=== PATIENT | male | born 1985 | race Caucasian/White ===

== ENCOUNTER 2017-02-24 00:58 | Emergency (ER) | payer BC, OTHER ==
[~2017-02-24] VITALS: Ht 180.3 cm; Wt 144.0 kg
[2017-02-24 01:05] VITALS: TEMP 36.9; Ht 180.3 cm; Wt 144.0 kg
[2017-02-24 04:22] VITALS: BP 133/76; PULSE 93; O2SAT 96
--- NOTE | 2017-02-24 06:49 | DIAGNOSTIC IMAGING REPORT ---
RIGHT TIBIA/FIBULA 2 VIEWS ROUTINE HISTORY: 31 years-old Male acute right lower extremity pain status post fall. COMPARISON: Right tibia and fibula radiographs 01/26/2016 TECHNIQUE: Frontal and lateral views of the right tibia and fibula. FINDINGS: There is moderate spurring of the Achilles insertion site about the calcaneus. There is mild spurring of the distal fibula as well. Bone mineralization is within normal limits. There is no acute fracture or dislocation identified. There is mild distal pretibial soft tissue swelling without radiopaque foreign body. IMPRESSION: 1. Mild pretibial soft tissue swelling without fracture. 2. Moderate spurring of the Achilles insertion site about the calcaneus. The above report was generated using voice recognition software. It may contain grammatical, syntax or spelling errors. Electronically signed by: Narendra Escoto M.D. 02/24/2017 6:48 AM Dictated Date/Time: 02/24/2017 6:46 AM
--- NOTE | 2017-02-24 07:04 | DIAGNOSTIC IMAGING REPORT ---
BILATERAL LOWER EXTREMITY VENOUS DOPPLER HISTORY: Acute right lower extremity pain. COMPARISON STUDY: Duplex ultrasound 01/26/2016. FINDINGS: There is normal compressibility, flow, and augmentation within the right lower extremity deep venous system. Incidental note is made of several right inguinal lymph nodes with increased lobulated echogenicity peripherally, largest of which measures 1.1 x 0.8 x 1.1 cm. These are nonspecific. IMPRESSION: 1. No DVT within the right lower extremity. 2. Incidental note is made of several mildly prominent right inguinal lymph nodes with increased lobulated echogenicity peripherally, nonspecific. Correlate with clinical exam. Electronically signed by: Narendra Escoto M.D. 02/24/2017 7:03 AM Dictated Date/Time: 02/24/2017 6:59 AM
--- NOTE | 2017-02-25 11:50 | EMERGENCY ROOM VISIT NOTE ---
History First contact with patient: 01:22 Chief Complaint: LEG PAIN,LEG INJURY Stated Complaint: PAIN FROM HIP TO TOE,TIGHTNESS IN CALF History of Present Illness The patient is a 31 year old male who presents to the Emergency Room with complaints of right lower leg pain worsening over the past several weeks. The patient states that he followed up with his primary care physician, and was told to take [id number] anti-inflammatories. He states that he primarily now has pain in the back of his knee just below the kneecap. He is able to ambulate and does not recall a distinct injury or trauma. He rates his discomfort a 4/10, dull, with some radiation down into his calf and toes. He does not have back pain or difficulty using the bathroom. Review of Systems More than 10 systems were reviewed and otherwise negative with the exception of history of present illness. Past Medical/Surgical History No chronic medical disease Family History No pertinent family history Social History Smoking Status: Never Smoker Occupation Status: employed Current/Historical Medications No Active Prescriptions or Reported Meds Physical Exam Vital Signs Date Time Temp Pulse Resp B/P (MAP) Pulse Ox O2 Delivery O2 Flow Rate FiO2 02/24/17 04:22 93 18 133/76 96 02/24/17 03:23 89 20 150/71 02/24/17 01:05 36.9 94 16 148/89 96 Room Air Pain Rating (0-10): 2.0 Physical Exam VITALS: Vitals are noted on the nurse's note and reviewed by myself. Vital signs stable. GENERAL: Well-developed, well-nourished, white male, who is in no acute distress and resting comfortably. Patient is cooperative with the examination. HEART: Regular rate and rhythm without murmurs gallops or rubs. LUNGS: Clear to auscultation bilaterally without wheezes, rales or rhonchi. No retractions or accessory muscle use. ABDOMEN: Positive normal bowel sounds x 4. Soft, nontender, without masses or organomegaly. No guarding or rebound tenderness. MUSCULOSKELETAL: No muscle atrophy, erythema, or edema noted. Full range of motion without joint tenderness in all extremities. No tenderness to palpation. Normal gait. Strength 5/5 throughout. No tenderness of the low back. No saddle paresthesias. NEURO: Patient was alert and oriented to person place and time. CN II through XII grossly intact. Deep tendon reflexes 2+ throughout. Medical Decision & Procedures ER Provider Diagnostic Interpretation: RIGHT TIBIA/FIBULA 2 VIEWS ROUTINE HISTORY: 31 years-old Male acute right lower extremity pain status post fall. COMPARISON: Right tibia and fibula radiographs 01/26/2016 TECHNIQUE: Frontal and lateral views of the right tibia and fibula. FINDINGS: There is moderate spurring of the Achilles insertion site about the calcaneus. There is mild spurring of the distal fibula as well. Bone mineralization is within normal limits. There is no acute fracture or dislocation identified. There is mild distal pretibial soft tissue swelling without radiopaque foreign body. IMPRESSION: 1. Mild pretibial soft tissue swelling without fracture. 2. Moderate spurring of the Achilles insertion site about the calcaneus. The above report was generated using voice recognition software. It may contain grammatical, syntax or spelling errors. BILATERAL LOWER EXTREMITY VENOUS DOPPLER HISTORY: Acute right lower extremity pain. COMPARISON STUDY: Duplex ultrasound 01/26/2016. FINDINGS: There is normal compressibility, flow, and augmentation within the right lower extremity deep venous system. Incidental note is made of several right inguinal lymph nodes with increased lobulated echogenicity peripherally, largest of which measures 1.1 x 0.8 x 1.1 cm. These are nonspecific. IMPRESSION: 1. No DVT within the right lower extremity. 2. Incidental note is made of several mildly prominent right inguinal lymph nodes with increased lobulated echogenicity peripherally, nonspecific. Correlate with clinical exam. ED Course Physical exam and history were performed. Nursing notes, EMR, and Medication List were personally reviewed. Patient appears to have reports of right lower leg pain for the past several weeks. He does not have significant findings on examination. X-ray of the tib- fib was performed at without acute findings. Ultrasound was negative for DVT. Overall the patient's symptoms are likely musculoskeletal. He does not have signs of infection or other obvious etiologies of his symptoms. The patient was asked to follow with his PCP for further care and management. He is otherwise invited back to the ER anytime and was pleased with plan of care. The chart was completed utilizing [employer] Recognition Software. Grammatical errors, random word insertions, pronoun errors, and incomplete sentences are an occasional consequence of this system due to software limitations, ambient noise, and hardware issues. Any formal questions or concerns about the content, text, or information contained within the body of this dictation should be directly addressed to the provider for clarification. . Medical Decision Differential diagnosis: Etiologies such as DVT, musculoskeletal, infection, joint effusion, trauma, lymphedema, idiopathic, CHF, as well as others were entertained.. Impression Primary Impression: Pain in right leg Departure Information Dispostion Home / Self-Care Condition GOOD Prescriptions No Active Prescriptions or Reported Meds Forms HOME CARE DOCUMENTATION FORM, IMPORTANT VISIT INFORMATION Patient Instructions My [facility] Additional Instructions You were seen and evaluated today on an emergency basis only. This is not a substitute for, or an effort to provide, complete comprehensive medical care. It is not possible to recognize and treat all injuries or illnesses in a single emergency department visit. For this reason it is recommended that you followup with your primary care physician with any ongoing or persistent symptoms. For baseline pain relief you may alternate ibuprofen and acetaminophen every 4 hours for pain control. Take 600 mg ibuprofen (Advil) and then 4 hours later take 1000 mg acetaminophen (Tylenol). Do not take more than 3000 mg acetaminophen in a single day. You are welcome to return to the emergency department anytime with new, worsening, or concerning symptoms.
== END 2017-02-24 04:22 | disposition home or self-care (01) ==
LOC: C.EDB 01:00 → C.EDA 04:22
DX: M79.661 Pain in right lower leg (principal)

== ENCOUNTER 2018-03-03 21:35 | Emergency (ER) | payer BC, OTHER ==
[~2018-03-03] VITALS: Ht 431.8 cm; Wt 146.5 kg
[2018-03-03 21:38] VITALS: TEMP 37.2; Ht 431.8 cm; Wt 146.5 kg
[2018-03-03] MEDS ORDERED: KETOROLAC TROMETHAMINE 30 MG/ML VIAL IV STA (22:00)
[2018-03-03] MEDS ORDERED: SODIUM CHLORIDE 0.9% 1000ML 1,000 ML IV STA ×2 (22:00→23:46)
--- NOTE | 2018-03-03 22:18 | DIAGNOSTIC IMAGING REPORT ---
CHEST ONE VIEW PORTABLE CLINICAL HISTORY: Epigastric and back pain COMPARISON STUDY: January 2012 FINDINGS: The heart is borderline enlarged. There is no failure. There is no focal pulmonary consolidation. There are no pleural effusions.[ IMPRESSION: No active disease in the chest. Electronically signed by: Pedro Iyer M.D. 03/03/2018 10:17 PM Dictated Date/Time: 03/03/2018 10:17 PM
[2018-03-03 22:27] LABS: BASO % 0.3 %; BASO ABS # 0.04 K/uL (0-0.2); EOS % 0.1 %; EOS ABS # 0.01 K/uL (0-0.5); HEMATOCRIT 41.8 % (42-52); HEMOGLOBIN 14.4 g/dL (14.0-18.0); LYMPH % 9.2 %; LYMPH ABS # 1.33 K/uL (1.2-3.4); MEAN CELL VOLUME 89.7 fL (80-100); MEAN CORPUSCULAR HEMOGLOBIN 30.9 pg (25-34); MEAN CORPUSCULAR HGB CONC 34.4 g/dl (32-36); MEAN PLATELET VOLUME 9.9 fL (7.4-10.4); MONO % 1.6 %; MONO ABS # 0.23 K/uL (0.11-0.59); NEUT % 86.7 %; NEUT ABS # 12.52 K/uL (1.4-6.5); PLATELET COUNT 317 K/uL (130-400); RED CELL DISTRIBUTION WIDTH CV 13.3 % (11.5-14.5); RED CELL DISTRIBUTION WIDTH SD 42.9 fL (36.4-46.3); WHITE BLOOD COUNT 14.43 K/uL (4.8-10.8)
[2018-03-03] MEDS ORDERED: PRED20TA PO (22:38)
[2018-03-03 22:48] LABS: ALBUMIN 4.3 gm/dl (3.4-5.0); ALKALINE PHOSPHATASE 84 U/L (45-117); ALT/SGPT 42 U/L (12-78); AST/SGOT 24 U/L (15-37); BLOOD UREA NITROGEN 14 mg/dl (7-18); CALCIUM 9.7 mg/dl (8.5-10.1); CARBON DIOXIDE 24 mmol/L (21-32); CREATININE 0.99 mg/dl (0.60-1.40); GLUCOSE 235 mg/dl (70-99); LIPASE 142 U/L (73-393); POTASSIUM 4.1 mmol/L (3.5-5.1); SODIUM 138 mmol/L (136-145); TOTAL PROTEIN 8.7 gm/dl (6.4-8.2)
--- NOTE | 2018-03-03 22:58 | DIAGNOSTIC IMAGING REPORT ---
BILIARY ULTRASOUND CLINICAL HISTORY: ruq pain COMPARISON STUDY: No previous studies for comparison. FINDINGS: The examination was difficult due to the patient's large body habitus. The pancreas appeared normal as visualized. The liver was difficult to penetrate. There is increased hepatic echogenicity. A nonspecific the findings are likely secondary to hepatic steatosis. There is a hypoechoic area adjacent the gallbladder likely representing focal fatty sparing. There is no right-sided hydronephrosis. The gallbladder was contracted and poorly visualized. No shadowing calculi were visualized. There is no ductal dilatation. The common bile duct measured 4 mm. IMPRESSION: 1. Technically limited study secondary to the patient's large body habitus 2. Suspected hepatic steatosis 3. Contracted gallbladder without definite calculi 4. No evidence of ductal dilatation Electronically signed by: Pedro Iyer M.D. 03/03/2018 10:57 PM Dictated Date/Time: 03/03/2018 10:54 PM
[2018-03-03 23:54] VITALS: BP 157/100; PULSE 99; O2SAT 97
--- NOTE | 2018-03-04 03:23 | EMERGENCY ROOM VISIT NOTE ---
History First contact with patient: 21:52 Chief Complaint: BACK PAIN Stated Complaint: PAIN IN BACK FROM SHOULDERS DOWN, SIDES TOO History of Present Illness The patient is a 32 year old male who presents to the Emergency Room with complaints of pain to mid back that radiates around to his mid abdomen the past few months described as discomfort, ranging in severity 5 out of 10. Nothing makes it better or worse. Patient with family care doctor yesterday and was started on prednisone. This has not helped. 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 Patient denies chest pain, dyspnea, fever, chills, nausea, vomiting, diarrhea, leg pain or swelling, localized weakness. No injury to the area. No spinal pain. Patient denies loss of bowel bladder control, saddle anesthesia, IV drug use. Review of Systems An 10 system review of systems was completed with positives and pertinent negatives listed in the HPI. Past Medical/Surgical History Appendectomy Social History Smoking Status: Current Some Day Smoker Smokeless Tobacco Use: Yes Drug Use: none Occupation Status: employed Current/Historical Medications Scheduled Prednisone (Prednisone), 20 MG PO UD Physical Exam Vital Signs Date Time Temp Pulse Resp B/P (MAP) Pulse Ox O2 Delivery O2 Flow Rate FiO2 03/03/18 23:54 99 18 157/100 97 Room Air 03/03/18 22:15 Room Air 03/03/18 21:38 37.2 117 18 180/96 97 Room Air Physical Exam VITALS: Vitals are noted on the nurse's note and reviewed by myself. Vital signs hypertensive. GENERAL: Pleasant obese male, in no acute distress, nondiaphoretic, well- developed well-nourished. SKIN: The skin was without rashes, erythema, edema, or bruising. There is no tenting of the skin. Capillary reflex less than 2 seconds. HEAD: Normocephalic atraumatic. EARS: External auditory canals clear, tympanic membranes pearly vargas without erythema or effusion bilaterally. EYES: Pupils equal round and reactive to light and accommodation. Conjunctivae without injection, sclerae without icterus. Extraocular movements intact. NOSE: Patent, turbinates without inflammation or discharge. MOUTH: Mucous membranes moist. Pharynx without erythema or exudate. Uvula midline. Airway patent. Tongue does not deviate. NECK: Supple without nuchal rigidity. No lymphadenopathy. No thyromegaly. Cervical spine is nontender. No JVD. HEART: Regular rate and rhythm without murmurs gallops or rubs. LUNGS: Clear to auscultation bilaterally without wheezes, rales or rhonchi. No retractions or accessory muscle use. ABDOMEN: Positive bowel sounds x 4. Normal tympanic percussion. Soft, minimally tender right upper quadrant, without masses or organomegaly. Joiner sign negative. No guarding or rebound tenderness. No CVA tenderness MUSCULOSKELETAL: No muscle atrophy, erythema, or edema noted. No thoracic or lumbar tenderness on exam. Patient can ambulate without difficulties. NEURO: Patient was alert and oriented to person place and time. Normal sensation to light and sharp touch. No focal neurological deficits. Medical Decision & Procedures Laboratory Results 03/03/18 22:12 Red Blood Count 4.66, Mean Corpuscular Volume 89.7, Mean Corpuscular Hemoglobin 30.9, Mean Corpuscular Hemoglobin Concent 34.4, Mean Platelet Volume 9.9, Neutrophils (%) (Auto) 86.7, Lymphocytes (%) (Auto) 9.2, Monocytes (%) (Auto) 1.6, Eosinophils (%) (Auto) 0.1, Basophils (%) (Auto) 0.3, Neutrophils # (Auto) 12.52, Lymphocytes # (Auto) 1.33, Monocytes # (Auto) 0.23, Eosinophils # (Auto) 0.01, Basophils # (Auto) 0.04 03/03/18 22:12 Test 03/03/18 22:10 03/03/18 22:12 03/03/18 22:16 03/03/18 23:35 Urine Color YELLOW Urine Appearance CLEAR (CLEAR) Urine pH 5.0 (4.5-7.5) Urine Specific Cooks 1.037 (1.000-1.030) Urine Protein NEG (NEG) Urine Glucose (UA) 3+ (NEG) Urine Ketones 1+ (NEG) Urine Occult Blood NEG (NEG) Urine Nitrite NEG (NEG) Urine Bilirubin NEG (NEG) Urine Urobilinogen NEG (NEG) Urine Leukocyte Esterase NEG (NEG) Urine WBC (Auto) 1-5 /hpf (0-5) Urine RBC (Auto) 0-4 /hpf (0-4) Urine Hyaline Casts (Auto) 0 /lpf (0-5) Urine Epithelial Cells (Auto) 20-30 /lpf (0-5) Urine Bacteria (Auto) NEG (NEG) White Blood Count 14.43 K/uL (4.8-10.8) Red Blood Count 4.66 M/uL (4.7-6.1) Hemoglobin 14.4 g/dL (14.0-18.0) Hematocrit 41.8 % (42-52) Mean Corpuscular Volume 89.7 fL (80-100) Mean Corpuscular Hemoglobin 30.9 pg (25-34) Mean Corpuscular Hemoglobin Concent 34.4 g/dl (32-36) Platelet Count 317 K/uL (130-400) Mean Platelet Volume 9.9 fL (7.4-10.4) Neutrophils (%) (Auto) 86.7 % Lymphocytes (%) (Auto) 9.2 % Monocytes (%) (Auto) 1.6 % Eosinophils (%) (Auto) 0.1 % Basophils (%) (Auto) 0.3 % Neutrophils # (Auto) 12.52 K/uL (1.4-6.5) Lymphocytes # (Auto) 1.33 K/uL (1.2-3.4) Monocytes # (Auto) 0.23 K/uL (0.11-0.59) Eosinophils # (Auto) 0.01 K/uL (0-0.5) Basophils # (Auto) 0.04 K/uL (0-0.2) RDW Standard Deviation 42.9 fL (36.4-46.3) RDW Coefficient of Variation 13.3 % (11.5-14.5) Immature Granulocyte % (Auto) 2.1 % Immature Granulocyte # (Auto) 0.30 K/uL (0.00-0.02) Anion Gap 9.0 mmol/L (3-11) Est Creatinine Clear Calc Drug Dose 226.1 ml/min Estimated GFR () 118.0 Estimated GFR (Non- 101.8 BUN/Creatinine Ratio 13.9 (10-20) Calcium Level 9.7 mg/dl (8.5-10.1) Total Bilirubin 0.3 mg/dl (0.2-1) Direct Bilirubin 0.1 mg/dl (0-0.2) Aspartate Amino Transf (AST/SGOT) 24 U/L (15-37) Alanine Aminotransferase (ALT/SGPT) 42 U/L (12-78) Alkaline Phosphatase 84 U/L (45-117) Total Creatine Kinase 131 U/L (39-308) Troponin I < 0.015 ng/ml (0-0.045) Total Protein 8.7 gm/dl (6.4-8.2) Albumin 4.3 gm/dl (3.4-5.0) Lipase 142 U/L (73-393) Lyme Disease IgG Antibody NEG (NEG) Lyme Disease IgM Antibody NEG (NEG) Bedside D-Dimer 260 ng/mlFEU (0-450) Venous Blood pH 7.41 (7.36-7.41) Venous Blood Partial Pressure CO2 38 mmHg (38.0-50.0) Venous Blood Partial Pressure O2 65 mmHg Venous Blood HCO3 24 mmol/L Venous Blood Oxygen Saturation 92.7 % Venous Blood Base Excess -0.7 mEq/L Test 03/04/18 00:06 Bedside Glucose 190 mg/dl (70-99) Medications Administered Medications (Trade) Dose Ordered Sig/Parth Route Start Time Stop Time Status Last Admin Dose Admin Ketorolac Tromethamine (Toradol Inj) 10 mg NOW STAT IV 03/03/18 22:00 03/03/18 22:03 DC 03/03/18 22:19 10 MG Sodium Chloride 1,000 ml @ 999 mls/hr Q1H1M STAT IV 03/03/18 22:00 03/03/18 23:00 DC 03/03/18 22:19 999 MLS/HR Sodium Chloride 1,000 ml @ 999 mls/hr Q1H1M STAT IV 03/03/18 23:46 03/04/18 00:46 DC 03/03/18 23:54 999 MLS/HR ED Course Prior records/ancillary studies reviewed. Triage Nursing notes reviewed. The patient's history was concerning for back pain. Differential diagnosis: Etiologies such as biliary colic, cardiac, Lyme's, infection, cholecystitis, electrolyte abnormality, rhabdomyolysis, musculoskeletal, disc herniation, fracture, aortic disease, metastatic disease, cord compression, discitis, infection, renal colic, gastrointestinal, acute exacerbation of chronic back pain, sciatica, cauda equina, as well as others were entertained. Physical findings: As above. No focal neurologic findings noted. ER treatment provided: IV fluids, Toradol On reassessment the patient felt better. Diagnostics interpreted by me: EKG: Normal sinus, normal intervals, no acute ST-T wave changes, rate of 114. Impression sinus tachycardia interpreted myself I think arrhythmia is unlikely. EKG shows normal sinus rhythm with no interval abnormalities such as QT prolongation or WPW. There are no findings to suggest Brugada syndrome. Cardiac monitoring in the emergency department reveals no tachycardic or bradycardic dysrhythmia. Hypertrophic cardiomyopathy was considered but there are no clear historical elements pointing toward this. EKG is not suggestive. The QRS voltage is not extremely large and there are no suggestive Q waves. The labs revealed hyperglycemia without DKA. Normal CPK Leukocytosis most likely stress reaction from the steroids. Negative Lyme's screen Imaging studies: BILIARY ULTRASOUND CLINICAL HISTORY: ruq pain COMPARISON STUDY: No previous studies for comparison. FINDINGS: The examination was difficult due to the patient's large body habitus. The pancreas appeared normal as visualized. The liver was difficult to penetrate. There is increased hepatic echogenicity. A nonspecific the findings are likely secondary to hepatic steatosis. There is a hypoechoic area adjacent the gallbladder likely representing focal fatty sparing. There is no right-sided hydronephrosis. The gallbladder was contracted and poorly visualized. No shadowing calculi were visualized. There is no ductal dilatation. The common bile duct measured 4 mm. IMPRESSION: 1. Technically limited study secondary to the patient's large body habitus 2. Suspected hepatic steatosis 3. Contracted gallbladder without definite calculi 4. No evidence of ductal dilatation [~ rep ct add3]] CHEST ONE VIEW PORTABLE CLINICAL HISTORY: Epigastric and back pain COMPARISON STUDY: January 2012 FINDINGS: The heart is borderline enlarged. There is no failure. There is no focal pulmonary consolidation. There are no pleural effusions.[ IMPRESSION: No active disease in the chest. Electronically signed by: Pedro Iyer M.D. Electronically signed by: Pedro Iyer M.D. This appears to be consistent with back pain with hyperglycemia with concerns for diabetes. Patient had no spinal pain on exam. Symptoms been ongoing for several months now. He was informed that he most likely has diabetes and is advised to see his family care doctor in a day or 2 for further evaluation and treatment for this. He was advised to stretch his back out and to strengthen his core maintain a healthy weight. He was advised to monitor his blood pressure. Patient had unremarkable workup as above. No acute findings on ultrasound or CT imaging. He did not have acute abdomen on exam. He is well- appearing. He was ambulating without difficulties. Patient was informed to stop the prednisone as this will increase his blood sugar levels. The patient' s physical examination and detailed history did not reveal any red flags for back pain such as those listed in the differential diagnosis. Therefore advanced diagnostics and consultations were felt to be unwarranted. Patient was advised to return to the ER meaty for chest pain, difficulty breathing, fevers, worsening signs or symptoms or as needed. By the evaluation outlined above emergent etiologies such as fracture, aortic disease, metastatic disease, infection, renal colic, gastrointestinal, cord compression, cauda equina, as well as others were deemed relatively unlikely. The pt informed about the findings as listed above. All questions were answered and pleased with the treatment. Return instructions were outlined and the patient was discharged in stable condition. Referral: The patient was referred back to primary care physician for follow-up in 2 to 3 days for a recheck of the current condition. Case reviewed with my attending The chart was completed utilizing [employer] Speech voice recognition software. Grammatical errors, random word insertions, pronoun errors, and incomplete sentences are an occassional consequence of this system due to software limitations, ambient noise, and hardware issues. Any formal questions or concerns about the content, text, or information contained within the body of this dictation should be directly addressed to the physician desk assistant for clarification. Medical Decision As above Medication Reconcilliation Current Medication List: was personally reviewed by me Blood Pressure Screening Patient's blood pressure: Elevated blood pressure Blood pressure disposition: Elevated BP felt to be situational Impression Primary Impression: Hyperglycemia Additional Impressions: Mid back pain on left side Mid back pain on right side Departure Information Dispostion Home / Self-Care Condition GOOD Forms HOME CARE DOCUMENTATION FORM, Work Instructions, Return To Work: 2 days IMPORTANT VISIT INFORMATION Patient Instructions Hyperglycemia, Back Pain - [facility], My [facility] Additional Instructions Stop the prednisone as this can increase her blood sugar. Recommend regular and exercise and a healthy weight. Recommend yoga and/or Pilates for back pain to help strengthen uo your core. Recommend physical therapy to help strengthen up your core. Recommend a healthy weight. Ibuprofen(Motrin, Advil) may be used for fever or pain. Use 600mg every six hours as needed. Take with food. Avoid using more than 2400mg in a 24 hour period. Do not use 2400mg per day for more than three consecutive days without physician direction. Prolonged inappropriate use can lead to stomach upset or ulcers. This medication can be taken if you need to drive, work, or perform activities which may be dangerous when taking narcotic pain medication. (AND/OR) Acetaminophen(Tylenol) may be used for fever or pain. Use 1000mg every six hours as needed. Avoid using more than 3000mg in a 24 hour period. This medication can be taken if you need to drive, work, or perform activities which may be dangerous when taking narcotic pain medication. Rest and avoid heavy lifting until your symptoms resolve and then gradually return to full activity. A good rule of thumb is if it hurts your back to perform a certain activity, then it should be avoided until you are healthy again. A heating pad, warm compresses, or a hot shower may help with tight muscles and can be done several times a day as needed. Continue current medications. Return to the ER immediately for any chest pain, difficulty breathing, numbness , tingling, severe pain, loss of control of your bowels or bladder, inability to walk, or as needed. Follow up with your primary care physician in 2-3 days days for a recheck of your current condition. Work Instructions Return To Work: 2 days Problem Qualifiers
== END 2018-03-04 00:31 | disposition home or self-care (01) ==
LOC: C.EDB 21:37
DX: M54.9 Dorsalgia, unspecified (principal); R73.9 Hyperglycemia, unspecified; F17.200 Nicotine dependence, unspecified, uncomplicated